=== PATIENT | female | born 1990 | race Hispanic/Latino ===

== ENCOUNTER 2017-09-25 17:01 | Emergency (ER) | payer BC, SELFPAY | END 2017-09-25 19:29 | disposition home or self-care (01) | LOC: ERS 17:01 | DX: J02.0 Streptococcal pharyngitis (principal) | CPT/HCPCS: 87430; 99283 ==

== ENCOUNTER 2018-05-21 18:07 | Emergency (ER) | payer SELFPAY ==
[2018-05-21 19:01] LABS: Bilirubin Negative (Negative); Blood, Urine Negative (Negative); Clarity CLOUDY (Clear); Glucose, Urine (Dipstick) Negative (Negative); Leukocyte Trace (Negative); Nitrite Negative (Negative); Protein, Urine (Dipstick) Negative (Neg-Trace); Specific Gravity, Urine 1.018 (1.002-1.036); pH, Urine 6.5 (5.0-9.0)
[2018-05-21 19:02] LABS: Pregnancy Test - Urine (BHCG) Negative (Negative); Pregu Control Background? CLEAR/WHITE (CLR/WHITE); Pregu Control Bar Appear? YES (CONTROL BAR); Specific Gravity 1.018 (1.002-1.036)
[2018-05-21 19:03] LABS: Bacteria/HPF Rare-Few HPF (None Seen); Hyaline Casts/LPF 0-3 HYALINE CAST LPF (0-3 Hyaline); Pathc Cast-AUWi Flag 0.58 (0-2.49)
[2018-05-21 19:15] LABS: RBC/HPF 0-3 HPF (0-3)
== END 2018-05-21 21:05 | disposition left against medical advice (07) ==
LOC: ERS 18:07
DX: Z53.21 Procedure and treatment not carried out due to patient leaving prior to being seen by health care provider (principal)
CPT/HCPCS: 81003; 81015; 81025

== ENCOUNTER 2018-08-09 19:54 | Emergency (ER) | payer SELFPAY ==
[2018-08-09] MEDS ORDERED: Ibuprofen 200 MG TAB ONE (20:32)
== END 2018-08-09 21:03 | disposition home or self-care (01) ==
LOC: ERS 19:54
DX: J01.90 Acute sinusitis, unspecified (principal)
CPT/HCPCS: 87081; 87430; 99283

== ENCOUNTER 2019-01-16 08:27 | Emergency (ER) | payer SELFPAY | END 2019-01-16 10:14 | disposition home or self-care (01) | LOC: ERS 08:27 | DX: J06.9 Acute upper respiratory infection, unspecified (principal); J11.1 Influenza due to unidentified influenza virus with other respiratory manifestations | CPT/HCPCS: 87804; 99283 ==

== ENCOUNTER 2019-09-17 13:54 | Emergency (ER) | payer SELFPAY ==
[2019-09-17] MEDS ORDERED: Dexamethasone 10 MG/ML VIAL ONE (15:45)
== END 2019-09-17 15:11 | disposition home or self-care (01) ==
LOC: ERS 13:54
DX: J02.9 Acute pharyngitis, unspecified (principal)
CPT/HCPCS: 87081; 87430; 99283; J1100

== ENCOUNTER 2020-10-15 21:20 | Emergency (ER) | payer SELFPAY | END 2020-10-16 00:20 | disposition left against medical advice (07) | LOC: ERS 21:20 | DX: Z53.21 Procedure and treatment not carried out due to patient leaving prior to being seen by health care provider (principal) ==

== ENCOUNTER 2023-10-07 23:02 | Emergency (ER) | payer SELFPAY ==
[2023-10-08] MEDS ORDERED: Acetaminophen 500 MG TAB ONE (00:11)
== END 2023-10-08 02:03 | disposition home or self-care (01) ==
LOC: ERS 23:02
DX: J02.9 Acute pharyngitis, unspecified (principal); R50.9 Fever, unspecified; Z20.822 Contact with and (suspected) exposure to COVID-19
CPT/HCPCS: 71046; 87081; 87430; 87635; 87804